=== PATIENT | male | born 1935 | race Caucasian/White ===

== ENCOUNTER 2022-11-23 13:03 | Outpatient (CLI) | payer MEDICARE, OTHER | END 2022-11-23 13:04 | disposition home or self-care (01) | LOC: CT 13:03 | PROVIDERS: ATTEND Thoracic Surgery (Cardiothoracic Vascular Surgery) | DX: Z48.812 Encounter for surgical aftercare following surgery on the circulatory system (principal); I71.40 Abdominal aortic aneurysm, without rupture, unspecified; Z95.2 Presence of prosthetic heart valve; I10 Essential (primary) hypertension; E78.2 Mixed hyperlipidemia; I25.10 Atherosclerotic heart disease of native coronary artery without angina pectoris; D59.4 Other nonautoimmune hemolytic anemias; R09.89 Other specified symptoms and signs involving the circulatory and respiratory systems; R31.21 Asymptomatic microscopic hematuria; M15.9 Polyosteoarthritis, unspecified; R73.01 Impaired fasting glucose | CPT/HCPCS: 36415; 74174; 80053; 80061; 81001; 83036 ==